=== PATIENT | female | born 1975 | race Hispanic/Latino ===

== ENCOUNTER 2017-05-11 22:34 | Emergency (ER) | payer SELFPAY ==
[2017-05-11] MEDS ORDERED: Milk Of Magnesia 30 ML UDCUP ONE (23:01)
[2017-05-11] MEDS ORDERED: Ondansetron ODT 4 MG TAB ONE (23:01)
[2017-05-11] MEDS ORDERED: Lorazepam 2 MG/ML VIAL ONE (23:01)
[2017-05-11] MEDS ORDERED: Lidocaine Viscous Sol 2% 15 ml UD Cup ONE (23:01)
== END 2017-05-12 00:05 | disposition home or self-care (01) ==
LOC: SCSER 22:34
DX: K29.70 Gastritis, unspecified, without bleeding (principal); F32.9 Major depressive disorder, single episode, unspecified
CPT/HCPCS: 93005; 96372; J2060; Q0162

== ENCOUNTER 2017-05-17 20:41 | Emergency (ER) | payer SELFPAY ==
[~2017-05-17 20:41] MED LIST: Iopamidol 370 76% 100 ML VIAL ONE
[2017-05-17] MEDS ORDERED: Lorazepam 2 MG/ML VIAL ONE (21:23)
[2017-05-17 21:39] LABS: #Basophils 0.1 thou/uL (0.0-0.2); #Eosinphils 0.1 thou/uL (0.0-0.7); #Lymphocytes 1.5 thou/uL (1.20-3.40); #Monocytes 0.4 thou/uL (0.11-0.59); #Neutrophils 3.9 thou/uL (1.40-6.50); %Basophils 1.2 % (0.0-1.0); %Eosinophils 1.3 % (0.0-10.0); %Lymphocytes 25.8 % (21.0-51.0); Hematocrit 40.7 % (36.0-47.0); Mean Platelet Volume 7.5 fL (7.4-10.4); Red Blood Cell (RBC) Count 4.54 mill/uL (4.20-5.40)
[2017-05-17 21:53] LABS: ALT (SGPT) 16 U/L (8-55); AST (SGOT) 18 U/L (5-34); Alkaline Phosphatase 63 U/L (40-150); Anion Gap 16 mmol/L (10-20); BUN (Urea Nitrogen) 14 mg/dL (7.0-18.7); Bilirubin, Total 1.1 mg/dL (0.2-1.2); Calc. Creatinine Clearance 0 mL/min (70-130); Calcium 9.7 mg/dL (7.8-10.44); Carbon Dioxide 23 mmol/L (22-29); Chloride 105 mmol/L (98-107); Estimated GFR-MDRD Greater than 90; Globulin 3.7 g/dL (2.4-3.5); Lipase 31 U/L (8-78); Protein, Total 8.4 g/dL (6.0-8.3)
--- NOTE | 2017-05-17 22:54 | CT ---
CT OF BRAIN PERFORMED WITHOUT CONTRAST ENHANCEMENT: 05/17/17 HISTORY: Altered mental status. Difficulty eating, dysphagia. The ventricular and cisternal system is within normal limits. There is no signs of intracerebral hem orrhage or extra-axial fluid collections. Mastoid air cells and visualized sinuses are clear. IMPRESSION: No acute intracranial abnormality. POS: [facility]
--- NOTE | 2017-05-18 00:03 | CT ---
CT OF NECK PERFORMED WITH INTRAVENOUS CONTRAST ENHANCEMENT: 05/17/17 HISTORY: Difficulty swallowing. The parotid as well as submandibular gland regions are unremarkable. There is no significant jugular chain adenopathy. The thyroid gland is normal in appearance. Epiglottis does not appear enlarged. I do not see any signs of any narrowing of the airway. The tons ils are mildly prominent. The right tonsil being slightly larger as compared to the left but no sign s of any abscess formation. Parapharyngeal spaces are clear. IMPRESSION: 1. Mild tonsillar prominence without significant narrowing to the airway. The right tonsil is slight ly larger as compared to the left. 2. Incidental note is made of a small hypodensity within the left parotid gland region which may rep resent a small intraparotid node. POS: [facility]
== END 2017-05-18 00:48 | disposition home or self-care (01) ==
LOC: SCSER 20:41
DX: F41.9 Anxiety disorder, unspecified (principal); R13.10 Dysphagia, unspecified; F32.9 Major depressive disorder, single episode, unspecified; Z79.899 Other long term (current) drug therapy
CPT/HCPCS: 70450; 70491; 80053; 83690; 84703; 85025; 93005; 96361; 96374; J2060